=== PATIENT | female | born 1970 | race African-American/Black ===

== ENCOUNTER 2020-05-10 13:48 | Emergency (ER) | payer BC ==
[2020-05-10] MEDS ORDERED: Ondansetron PF 4 MG/2 ML Vial ONE (14:16)
[2020-05-10 14:39] LABS: #Lymphocytes 1.4 thou/uL (1.20-3.40); #Monocytes 0.6 thou/uL (0.11-0.59); #Neutrophils 2.6 thou/uL (1.40-6.50); %Basophils 0.9 % (0.0-1.0); %Eosinophils 0.1 % (0.0-10.0); %Lymphocytes 30.4 % (21.0-51.0); %Monocytes 12.5 % (0.0-10.0); %Neutrophils 56.2 % (42.0-75.0); Mean Corpuscular HGB CONC 32.6 g/dL (32.0-36.0); Mean Corpuscular Hemoglobin 31.9 pg (27.0-31.0); Mean Corpuscular Volume 97.8 fL (78.0-98.0); Mean Platelet Volume 10.5 fL (7.4-10.4); Platelet Count 160 thou/uL (130-400); RBC Distribution Width 12.9 % (11.5-14.5); Red Blood Cell (RBC) Count 5.34 mill/uL (4.20-5.40); White Blood Cell (WBC) Count 4.5 thou/uL (4.8-10.8)
[2020-05-10] MEDS ORDERED: Acetaminophen 500 MG TAB ONE (14:54)
[2020-05-10 14:55] LABS: ALT (SGPT) 46 U/L (8-55); AST (SGOT) 62 U/L (5-34); Albumin 4.3 g/dL (3.5-5.0); Alkaline Phosphatase 56 U/L (40-110); Anion Gap 18 mmol/L (10-20); BUN (Urea Nitrogen) 16 mg/dL (7.0-18.7); Bilirubin, Total 0.4 mg/dL (0.2-1.2); Calc. Creatinine Clearance 0 mL/min (70-130); Carbon Dioxide 22 mmol/L (22-29); Chloride 102 mmol/L (98-107); Globulin 4.4 g/dL (2.4-3.5); Glucose 113 mg/dL (70-105); Lipase 17 U/L (8-78); Protein, Total 8.7 g/dL (6.0-8.3); Sodium 138 mmol/L (136-145)
[2020-05-10] MEDS ORDERED: Aspirin Chewable 81 MG TAB ONE (15:37)
[2020-05-10 16:34] LABS: Bilirubin Small (Negative); Blood, Urine Negative (Negative); Clarity Clear (Clear); Glucose, Urine (Dipstick) Negative (Negative); Ketone, Urine Negative (Negative); Leukocyte Negative (Negative); Nitrite Negative (Negative); Protein, Urine (Dipstick) Trace mg/dL (Neg-Trace); Specific Gravity, Urine 1.015 (1.005-1.030)
== END 2020-05-10 16:15 | disposition home or self-care (01) ==
LOC: BURERS 13:48
DX: U07.1 COVID-19 (principal); E86.0 Dehydration
CPT/HCPCS: 51701; 71045; 80053; 81003; 83605; 83690; 83880; 84484; 85025; 93005; 96361; 96374; J2405

== ENCOUNTER 2022-08-27 06:28 | Emergency (ER) | payer BC ==
[2022-08-27] MEDS ORDERED: Ondansetron PF 4 MG/2 ML Vial ONE (07:20)
[2022-08-27] MEDS ORDERED: Morphine 4 MG/ML VIAL ONE (07:20)
[2022-08-27 07:24] LABS: ALT (SGPT) 11 U/L (8-55); AST (SGOT) 19 U/L (5-34); Albumin 4.2 g/dL (3.5-5.0); Alkaline Phosphatase 54 U/L (40-110); Anion Gap 18 mmol/L (10-20); BUN (Urea Nitrogen) 17 mg/dL (9.8-20.1); Bilirubin, Total 0.3 mg/dL (0.2-1.2); Calc. Creatinine Clearance 0 mL/min (70-130); Calcium 9.5 mg/dL (7.8-10.44); Carbon Dioxide 15 mmol/L (22-29); Chloride 104 mmol/L (98-107); Estimated GFR 43; Globulin 3.9 g/dL (2.4-3.5); Glucose 117 mg/dL (70-105); Hemoglobin 14.7 g/dL (12.0-16.0); Mean Corpuscular HGB CONC 33.5 g/dL (32.0-36.0); Mean Platelet Volume 6.8 fL (7.4-10.4); Platelet Count 192 10x3/uL (130-400); Potassium 3.2 mmol/L (3.5-5.1); Protein, Total 8.1 g/dL (6.0-8.3); RBC Distribution Width 14.7 % (11.5-14.5); Red Blood Cell (RBC) Count 4.07 mill/uL (4.20-5.40); Sodium 134 mmol/L (136-145); White Blood Cell (WBC) Count 2.9 10x3/uL (4.8-10.8)
[2022-08-27 07:35] LABS: Large Platelets SLIGHT (None Seen); Lymphocytes 38 % (21-51); MDiff Complete? YES; Macrocytosis SLIGHT = 6-15 cells (100X) (0-5/hpf); Monocytes 8 % (0-10); Neutrophil 53 % (42-75); Nucleated RBC (Manual Ct) 1 % (0); Platelet Adequacy Comment Appears Adequate
== END 2022-08-27 08:29 | disposition home or self-care (01) ==
LOC: BURERS 06:28
DX: R11.2 Nausea with vomiting, unspecified (principal); R19.7 Diarrhea, unspecified; I10 Essential (primary) hypertension
CPT/HCPCS: 80053; 83605; 85025; 96374; 96375; J2270; J2405